=== PATIENT | female | born 1935 | race Hispanic/Latino ===

== ENCOUNTER → 2023-04-21 | Outpatient (CLI) | payer MEDICARE | END | disposition home or self-care (01) | LOC: RAH 10:00 | PROVIDERS: ATTEND Anesthesiology Pain Medicine | DX: M51.16 Intervertebral disc disorders with radiculopathy, lumbar region (principal); M47.26 Other spondylosis with radiculopathy, lumbar region; M48.07 Spinal stenosis, lumbosacral region; M71.38 Other bursal cyst, other site | CPT/HCPCS: 72148 ==